=== PATIENT | male | born 1995 | race Caucasian/White ===

== ENCOUNTER 2018-07-08 15:29 | Emergency (ER) | payer BC ==
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
[2018-07-08 17:51] VITALS: BP 137/82
== END 2018-07-08 17:51 | disposition home or self-care (01) ==
DX: F07.81 Postconcussional syndrome (principal)